=== PATIENT | male | born 1940 | race Two or more races ===

== ENCOUNTER → 2016-12-26 | Outpatient (CLI) | payer OTHER, MEDICARE | LOC: FIMAGING 11:22 | PROVIDERS: ATTEND Family Medicine | DX: M79.606 Pain in leg, unspecified (principal); M79.662 Pain in left lower leg ==

== ENCOUNTER → 2017-08-10 | Outpatient (CLI) | payer OTHER, MEDICARE | LOC: GIMAGING 10:31 | PROVIDERS: ATTEND Family Medicine | DX: M25.751 Osteophyte, right hip (principal); M25.752 Osteophyte, left hip; M51.37 Other intervertebral disc degeneration, lumbosacral region | CPT/HCPCS: 72170-PO ==